=== PATIENT | female | born 1995 | race Caucasian/White ===

== ENCOUNTER 2016-06-25 16:28 | Emergency (ER) | payer OTHER ==
[~2016-06-25] VITALS: Ht 162.6 cm; Wt 92.3 kg
[~2016-06-25 16:28] MED LIST: ALTAVERA1 EACH PO; AMOXICILLIN875 MG PO; ENDOCET 5-3251 EACH PO; HYDROCODON-ACE1 EAC7 PO; IBUPROFEN800 MG PO; MOTRIN600 MG PO; PRENATAL TABLE1 EAC3 PO; VALTREX1000 MG PO; ZOFRAN4 MG PO
[2016-06-25] MEDS ORDERED: TOPAMAX25 MG PO (16:52)
[2016-06-25 18:29] VITALS: BP 130/79
== END 2016-06-25 18:30 | disposition home or self-care (01) ==
LOC: EME 16:28
DX: G43.909 Migraine, unspecified, not intractable, without status migrainosus (principal)
CPT/HCPCS: 99281; 99284; J1885; J2550

== ENCOUNTER 2016-11-19 12:48 | Emergency (ER) | payer OTHER ==
[~2016-11-19] VITALS: Ht 162.6 cm; Wt 81.4 kg
[~2016-11-19 12:48] MED LIST changes: +TOPAMAX25 MG PO
[2016-11-19 12:52] VITALS: BP 120/65
== END 2016-11-19 20:20 | disposition left against medical advice (07) ==
LOC: EME 12:48
DX: Z00.8 Encounter for other general examination (principal); Z53.21 Procedure and treatment not carried out due to patient leaving prior to being seen by health care provider
CPT/HCPCS: 80048; 84702; 85027; G0480

== ENCOUNTER 2017-03-28 10:49 | Emergency (ER) | payer OTHER ==
[~2017-03-28] VITALS: Ht 162.6 cm; Wt 87.8 kg
[2017-03-28] MEDS ORDERED: FLONASE16 G1 BOTH NARES (14:47)
[2017-03-28] MEDS ORDERED: PREDNISONE10 M1 PO (14:47)
[2017-03-28] MEDS ORDERED: IVERMECTIN3 MG PO (14:51)
[2017-03-28 15:19] VITALS: BP 124/79
== END 2017-03-28 15:21 | disposition home or self-care (01) ==
LOC: EME 10:49
DX: J06.9 Acute upper respiratory infection, unspecified (principal); B86 Scabies; Z88.0 Allergy status to penicillin; Z88.8 Allergy status to other drugs, medicaments and biological substances
CPT/HCPCS: 99281; 99284

== ENCOUNTER 2017-06-12 15:43 | Emergency (ER) | payer OTHER ==
[~2017-06-12] VITALS: Ht 162.6 cm; Wt 85.5 kg
[~2017-06-12 15:43] MED LIST changes: +FLONASE16 G1 BOTH NARES; +IVERMECTIN3 MG PO; +PREDNISONE10 M1 PO
[2017-06-12 16:48] LABS: APPEARANCE SL.HAZY ((CLEAR)); BILIRUBIN NEGATIVE; BLOOD NEGATIVE; COLOR YELLOW ((YELLOW)); GLUCOSE (STRIP) NEGATIVE; KETONES NEGATIVE; LEUKOCYTES NEGATIVE; NITRITE NEGATIVE; PROTEIN (STRIP) NEGATIVE; SPECIFIC GRAVITY 1.027 (1.000-1.030); UROBILINOGEN 0.2 MG/DL (0.2-1.0)
[2017-06-12 16:56] LABS: BACTERIA NONE SEEN /HPF; EPITHELIAL CELLS 2+ /HPF; MUCUS TRACE /LPF; RED BLOOD CELLS 0-5 /HPF (0-5); UCUL ADDED? NO; WHITE BLOOD CELLS 0-5 /HPF (0-5)
[2017-06-12 17:08] LABS: HEMATOCRIT 40.1 % (36.0-46.0); HEMOGLOBIN 14.2 G/DL (11.9-15.5); MCH 30.8 PG (29.0-34.0); MCHC 35.4 G/DL (30.0-36.0); PLATELET COUNT 246 K/uL (156-360); RBC DIS.WIDTH-CV 12.4 % (11.8-14.6); RBC DIS.WIDTH-SD 39.4 % (39-53); RED BLOOD COUNT 4.61 M/uL (3.80-5.20); WHITE BLOOD COUNT 6.6 K/uL (4.1-10.2)
[2017-06-12 17:27] LABS: ALBUMIN 4.3 G/DL (3.2-4.8); CHLORIDE 106 MEQ/L (99-109); POTASSIUM 3.7 MEQ/L (3.7-5.4); SODIUM 136 MEQ/L (136-147); TOTAL BILIRUBIN 0.8 MG/DL (0.0-1.0)
[2017-06-12 17:30] LABS: QUANTITATIVE HCG < 4.0 MIU/ML
[2017-06-12 17:33] LABS: ALKALINE PHOSPHATASE 49 IU/L (3-129); ALT (GPT) 13 IU/L (3-49); AST (GOT) 19 IU/L (2-34); CREATININE 0.6 MG/DL (0.6-1.3); GFR ESTIMATE (CALCULATED) > 59 mL/min/; GLUCOSE 89 mg/dL (70-99); TOTAL PROTEIN 6.9 G/DL (6.4-8.3); UREA NITROGEN (BUN) 10 mg/dL (9-23)
[2017-06-12 19:31] LABS: LIPASE 27 U/L (1.0-51.0)
[2017-06-12] MEDS ORDERED: ZOFRAN ODT8 MG PO (21:33)
[2017-06-12] MEDS ORDERED: BENTYL20 MG PO (21:39)
[2017-06-12 21:47] VITALS: BP 129/60
== END 2017-06-12 21:48 | disposition home or self-care (01) ==
LOC: EME 15:43
DX: R10.11 Right upper quadrant pain (principal); R11.2 Nausea with vomiting, unspecified; Z88.0 Allergy status to penicillin
CPT/HCPCS: 74176; 76705; 80053; 81003; 83690; 84702; 85027; 99281; 99285; J1885; J2405; J3010; J7040

== ENCOUNTER 2017-11-24 12:33 | Emergency (ER) | payer OTHER ==
[~2017-11-24] VITALS: Ht 162.6 cm; Wt 82.0 kg
[~2017-11-24 12:33] MED LIST changes: +BENTYL20 MG PO; +ZOFRAN ODT8 MG PO
[2017-11-24 13:17] LABS: HEMATOCRIT 37.4 % (36.0-46.0); HEMOGLOBIN 13.5 G/DL (11.9-15.5); MCH 31.5 PG (29.0-34.0); MCHC 36.1 G/DL (30.0-36.0); MCV 87.4 FL (83-99); PLATELET COUNT 301 K/uL (156-360); RBC DIS.WIDTH-CV 12.6 % (11.8-14.6); RBC DIS.WIDTH-SD 40.1 % (39-53); RED BLOOD COUNT 4.28 M/uL (3.80-5.20); WHITE BLOOD COUNT 9.9 K/uL (4.1-10.2)
[2017-11-24 13:30] LABS: ALBUMIN 4.2 g/dL (3.2-4.8)
[2017-11-24 13:31] LABS: CHLORIDE 106 mEq/L (99-109); POTASSIUM 3.9 mEq/L (3.7-5.4); SODIUM 139 mEq/L (136-147)
[2017-11-24 13:33] LABS: GLUCOSE 94 mg/dL (70-99)
[2017-11-24 13:35] LABS: TOTAL BILIRUBIN 0.7 mg/dL (0.0-1.0)
[2017-11-24 13:36] LABS: APPEARANCE SL.HAZY ((CLEAR)); BILIRUBIN NEGATIVE; BLOOD NEGATIVE; COLOR YELLOW ((YELLOW)); GLUCOSE (STRIP) NEGATIVE; KETONES NEGATIVE; LEUKOCYTES MODERATE; NITRITE NEGATIVE; PROTEIN (STRIP) NEGATIVE; SPECIFIC GRAVITY 1.012 (1.000-1.030); UROBILINOGEN 0.2 MG/DL (0.2-1.0)
[2017-11-24 13:37] LABS: ALKALINE PHOSPHATASE 53 IU/L (3-129); CREATININE 0.7 mg/dL (0.6-1.3); GFR ESTIMATE (CALCULATED) > 59 mL/min/
[2017-11-24 13:38] LABS: AST (GOT) 14 IU/L (2-34); UREA NITROGEN (BUN) 7 mg/dL (9-23)
[2017-11-24 13:39] LABS: ALT (GPT) 14 IU/L (3-49)
[2017-11-24 13:51] LABS: BACTERIA RARE /HPF; EPITHELIAL CELLS 1+ /HPF; MUCUS TRACE /LPF; RED BLOOD CELLS 0-5 /HPF (0-5); UCUL ADDED? YES
[2017-11-24 13:53] LABS: LIPASE 53 U/L (1.0-51.0)
[2017-11-24 14:05] LABS: QUANTITATIVE HCG 45605.7 MIU/ML
[2017-11-24] MEDS ORDERED: MACROBID100 MG PO (17:30)
[2017-11-24] MEDS ORDERED: ZOFRAN4 MG PO (17:30)
[2017-11-24 17:57] VITALS: BP 116/54
== END 2017-11-24 17:40 | disposition home or self-care (01) ==
LOC: EME 12:33
DX: O23.41 Unspecified infection of urinary tract in pregnancy, first trimester (principal); O26.891 Other specified pregnancy related conditions, first trimester; R10.10 Upper abdominal pain, unspecified; Z3A.01 Less than 8 weeks gestation of pregnancy; Z88.0 Allergy status to penicillin
CPT/HCPCS: 76705; 76801; 80053; 81003; 83690; 84702; 85027; 87086; 99281; 99285

== ENCOUNTER 2017-12-03 20:30 | Emergency (ER) | payer OTHER ==
[~2017-12-03] VITALS: Ht 162.6 cm; Wt 82.6 kg
[~2017-12-03 20:30] MED LIST changes: +MACROBID100 MG PO
[2017-12-03 21:06] LABS: BASOPHIL (%) 0.4 % (0-1); BASOPHIL COUNT 0.1 K/uL (0-0.1); EOSINOPHIL (%) 0.7 % (0-5); EOSINOPHIL COUNT 0.1 K/uL (0-0.3); HEMATOCRIT 33.9 % (36.0-46.0); HEMOGLOBIN 12.2 G/DL (11.9-15.5); IMMATURE GRANULOCYTE (%) 0.3 % (0.0-0.7); LYMPHOCYTE (%) 20.4 % (15-42); LYMPHOCYTE COUNT 2.4 K/uL (1.0-2.8); MCH 31.5 PG (29.0-34.0); MCV 87.6 FL (83-99); MONOCYTE (%) 5.9 % (3-12); MONOCYTE COUNT 0.7 K/uL (0-0.8); NEUTROPHIL (%) 72.3 % (45-76); NEUTROPHIL COUNT 8.4 K/uL (1.8-6.4); PLATELET COUNT 283 K/uL (156-360); RBC DIS.WIDTH-CV 12.5 % (11.8-14.6); RBC DIS.WIDTH-SD 40.2 % (39-53); RED BLOOD COUNT 3.87 M/uL (3.80-5.20); WHITE BLOOD COUNT 11.6 K/uL (4.1-10.2)
[2017-12-03 21:13] LABS: APPEARANCE SL.HAZY ((CLEAR)); BILIRUBIN NEGATIVE; BLOOD NEGATIVE; COLOR YELLOW ((YELLOW)); GLUCOSE (STRIP) NEGATIVE; KETONES NEGATIVE; LEUKOCYTES MODERATE; NITRITE NEGATIVE; PROTEIN (STRIP) NEGATIVE
[2017-12-03 21:14] LABS: GLUCOSE 126 mg/dL (70-99); TOTAL PROTEIN 7.2 g/dL (6.4-8.3)
[2017-12-03 21:16] LABS: TOTAL BILIRUBIN 0.4 mg/dL (0.0-1.0)
[2017-12-03 21:18] LABS: ALKALINE PHOSPHATASE 43 IU/L (3-129); CREATININE 0.7 mg/dL (0.6-1.3); GFR ESTIMATE (CALCULATED) > 59 mL/min/
[2017-12-03 21:19] LABS: UREA NITROGEN (BUN) 12 mg/dL (9-23)
[2017-12-03 21:20] LABS: AST (GOT) 15 IU/L (2-34)
[2017-12-03 21:21] LABS: ALT (GPT) 12 IU/L (3-49); LIPASE 41 U/L (1.0-51.0)
[2017-12-03 21:46] LABS: QUANTITATIVE HCG 104856.4 MIU/ML
[2017-12-03 21:49] LABS: ALBUMIN 4.2 g/dL (3.2-4.8); CHLORIDE 103 mEq/L (99-109); POTASSIUM 3.7 mEq/L (3.7-5.4); SODIUM 135 mEq/L (136-147)
[2017-12-03 21:55] LABS: BACTERIA 3+ /HPF; EPITHELIAL CELLS 2+ /HPF; MUCUS 1+ /LPF; RED BLOOD CELLS 0-5 /HPF (0-5)
[2017-12-03] MEDS ORDERED: ZOFRAN ODT4 MG PO (22:25)
[2017-12-03] MEDS ORDERED: KEFLEX500 MG PO (22:25)
[2017-12-03 23:14] VITALS: BP 125/66
== END 2017-12-03 23:15 | disposition home or self-care (01) ==
LOC: RME 20:30 → EME 20:30 → RME 23:15
PROVIDERS: Physician Assistant
DX: O23.41 Unspecified infection of urinary tract in pregnancy, first trimester (principal); O20.0 Threatened abortion; Z3A.01 Less than 8 weeks gestation of pregnancy; G43.909 Migraine, unspecified, not intractable, without status migrainosus; Z88.0 Allergy status to penicillin; Z88.8 Allergy status to other drugs, medicaments and biological substances
CPT/HCPCS: 76801; 80053; 81003; 83690; 84702; 85025; 99281; 99285; J0696; J2270; J2405; J7030